=== PATIENT | female | born 1985 | race African-American/Black ===

== ENCOUNTER 2020-01-10 19:01 | Emergency (ER) | payer SELFPAY ==
[~2020-01-10] VITALS: Ht 167.6 cm; Wt 77.1 kg
[2020-01-10 19:08] VITALS: BP 132/75
[2020-01-10 21:17] VITALS: BP 130/78
--- NOTE | 2020-01-11 16:14 | Emergency Room Report ---
History of Present Illness General Chief Complaint: Substance Abuse Source: Patient Present Illness HPI Unidentified female to ED for evaluation. Brought in by EMS for behavioral. Was found altered. Given Narcan in field. Now awake alert. Not answering questions but is following commands. No signs of distress. No agitated. refuses to provide her name. No other aggravating relieving factors. No other associated symptoms Allergies: Coded Allergies: UNABLE TO ASSESS (Unverified , 01/10/20) pt non verbal. Patient History Past Medical History: none Past Surgical History: none Pertinent Family History: none Social History: Reports: drug use; Denies: smoking, alcohol use Now: No Immunizations: UTD Reviewed Nursing Documentation: PMH: Agreed; PSxH: Agreed Nursing Documentation-PMH Past Medical History: Deferred Review of Systems All Other Systems: negative except mentioned in HPI Physical Exam Vital Signs Date Time Temp Pulse Resp B/P (MAP) Pulse Ox O2 Delivery O2 Flow Rate FiO2 01/10/20 18:54 98.4 100 16 134/74 (94) 100 Room Air Sp02 EP Interpretation: reviewed, normal General Appearance: no apparent distress, alert, GCS 15, non-toxic Head: normocephalic, atraumatic Eyes: bilateral eye normal inspection, bilateral eye PERRL ENT: hearing grossly normal, normal pharynx, no angioedema, normal voice Neck: full range of motion, supple/symm/no masses Respiratory: chest non-tender, lungs clear, normal breath sounds, speaking full sentences Cardiovascular #1: regular rate, rhythm, no edema Cardiovascular #2: 2+ carotid (R), 2+ carotid (L), 2+ radial (R), 2+ radial (L) , 2+ dorsalis pedis (R), 2+ dorsalis pedis (L) Gastrointestinal: normal bowel sounds, non tender, soft, non-distended, no guarding, no rebound Rectal: deferred Genitourinary: normal inspection, no CVA tenderness Musculoskeletal: back normal, normal range of motion, gait/station normal, non- tender Neurologic: alert, motor strength/tone normal, sensory intact, speech normal Psychiatric: no suicidal/homicidal ideation, other - not answering questions Reflexes: 3+ bicep (R), 3+ bicep (L), 3+ tricep (R), 3+ tricep (L), 3+ knee (R) , 3+ knee (L) Skin: no rash Lymphatic: no adenopathy Medical Decision Making Diagnostic Impression: Primary Impression: Altered level of consciousness ER Course Hospital Course unidentified female presents nonverbal. awake after narcan Clinical course Patient placed on stretcher. Visual history physical exam reveals female in no acute distress. Awake. Appears anxious. Refusing to answer questions or state her name. Patient declines blood draw or IV access. Patient not agitated or combative here. Observed in ED with stable vitals. Protecting airway. We will discharge. Safe for discharge for close outpatient follow-up. I will provide referrals Diagnosis - ALOC stable and discharged to home. Followup with PMD. Return to ED if symptoms recur or worsen Last Vital Signs Date Time Temp Pulse Resp B/P (MAP) Pulse Ox O2 Delivery O2 Flow Rate FiO2 01/10/20 21:17 98.2 95 16 130/78 99 Room Air Status: improved Disposition: HOME, SELF-CARE Condition: Stable Referrals: NOT CHOSEN SABRINA/,REFERRING (PCP) Karis [facility] Patient Instructions: Finding Treatment for Addiction Dane Martin MD Jan 11, 2020 16:14
== END 2020-01-10 21:17 | disposition home or self-care (01) ==
LOC: EDBD 19:01 → EMR 21:17
DX: R41.82 Altered mental status, unspecified (principal); F19.10 Other psychoactive substance abuse, uncomplicated
CPT/HCPCS: 99281